=== PATIENT | female | born 1995 | race Two or more races ===

== ENCOUNTER 2019-07-27 21:42 | Emergency (ER) | payer OTHER ==
[~2019-07-27] VITALS: Ht 149.9 cm; Wt 59.9 kg
--- NOTE | 2019-07-27 21:49 | PHYS DOC ---
Adult General Chief Complaint Chief Complaint: ".. I ve got a vaginal discharge and discomfort... some itching.. I ve been having some unprotected sex the last couple weeks.. 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 Patient has history recent unprotected sexual intercourse. Has had 3 lifetime sexual partners. No history of STDs. No history of pregnancies. There was a use a condom but also some non-protected vaginal sex. No instrumentation.. No rectal sex. No history immunosuppression. No history of recent travel. Patient rosalva blairy healthy. Up-to-date with vaccinations. Review of Systems Review of Systems Constitutional: Denies fever or chills [] Eyes: Denies change in visual acuity, redness, or eye pain [] HENT: Denies nasal congestion or sore throat [] Respiratory: Denies cough or shortness of breath [] Cardiovascular: No additional information not addressed in HPI [] GI: Denies nausea, vomiting, bloody stools or diarrhea [. Patient has]complaints of lower pelvic discomfort : Denies dysuria or hematuria [. Patient has]complaints of vaginal discharge and discomfort. Musculoskeletal: Denies back pain or joint pain [] Integument: Denies rash or skin lesions [] Neurologic: Denies headache, focal weakness or sensory changes [] Endocrine: Denies polyuria or polydipsia [] All other systems were reviewed and found to be within normal limits, except as documented in this note. Family History Family History Noncontributory Current Medications Current Medications See nursing for home meds Allergies Allergies No known drug allergies Physical Exam Physical Exam Constitutional: Well developed, well nourished, moderate acute distress, non- toxic appearance. [] HENT: Normocephalic, atraumatic, bilateral external ears normal, oropharynx moist, no oral exudates, nose normal. [] Eyes: PERRLA, EOMI, conjunctiva normal, no discharge. [] Neck: Normal range of motion, no tenderness, supple, no stridor. [] Cardiovascular:Heart rate regular rhythm, no murmur [] Lungs & Thorax: Bilateral breath sounds clear to auscultation [] Abdomen: Bowel sounds normal, soft, no tenderness, no masses, no pulsatile masses. [] Pelvic exam- labia are inflamed and red. Has cervical motion tenderness. Does have vaginal inflammation and discharge. No adnexal tenderness. Rectal nontender. No Rebound pain. Skin: Warm, dry, no erythema, no rash. [] Back: No tenderness, no CVA tenderness. [] Extremities: No tenderness, no cyanosis, no clubbing, ROM intact, no edema. [] No psoas sign. Neurologic: Alert and oriented X 3, normal motor function, normal sensory function, no focal deficits noted. [] Psychologic: Affect anxious, judgement normal, mood normal. [] EKG EKG [] Radiology/Procedures Radiology/Procedures [] Course & Med Decision Making Course & Med Decision Making Pertinent Labs and Imaging studies reviewed. (See chart for details) Patient to practice safe sex. Take doxycycline 100 mg twice a day. Follow-up pending cultures. Partner needs to be treated . Follow-up with primary care. Return if any concerns. After completing the doxycycline take Diflucan 100 mg daily for 3 days. Impression - 1. Cervicitis [] Dragon Disclaimer Dragon Disclaimer This electronic medical record was generated, in whole or in part, using a voice recognition dictation system. Departure Departure: Disposition: HOME/RESIDENCE PRIOR TO ADM Condition: STABLE Referrals: PCP,UNKNOWN (PCP) Scripts Fluconazole (DIFLUCAN) 150 Mg Tablet 150 MG PO DAILY for post antibiotic treatment for 3 Days, #3 TAB Prov: LOLITA KATZ MD 07/27/19 Doxycycline Hyclate (Doryx) 50 Mg Tablet.dr 100 MG PO twice a day for cervicitis, #30 TAB Prov: LOLITA KATZ MD 07/27/19 Mohan Disclaimer This chart was dictated in whole or in part using Voice Recognition software in a busy, high-work load, and often noisy Emergency Department environment. It may contain unintended and wholly unrecognized errors or omissions. LOLITA KATZ MD Jul 27, 2019 21:49
[2019-07-27 21:55] VITALS: BP 134/84
[2019-07-27] MEDS ORDERED: ONDANSETRON ODT 4 MG TAB.RAPDIS PO ONE (22:15)
[2019-07-27] MEDS ORDERED: AZITHROMYCIN 250 MG TABLET. PO ONE (22:15)
[2019-07-27] MEDS ORDERED: metroNIDAZOLE 500 MG TABLET PO ONE (22:15)
[2019-07-27] MEDS ORDERED: cefTRIAXone IM 1 GM VIAL IM ONE (22:15)
[2019-07-27] MEDS ORDERED: DOXY50TA7 PO (22:21)
[2019-07-27] MEDS ORDERED: FLUC150T PO (22:21)
[2019-07-27] MEDS ORDERED: cefTRIAXone SODIUM 1 GM VIAL ONE (22:22)
[2019-07-27] MEDS ORDERED: IV RINGERS SOLUTION,LACTATED 1,000 ML IV SCH (22:30)
[2019-07-27] MEDS ORDERED: ACETAMINOPHEN 500 MG TABLET PO ONE (22:30)
[2019-07-27] MEDS ORDERED: ONDANSETRON PF 4 MG/2 ML VIAL. IVP ONE (22:30)
[2019-07-27 22:47] LABS: BASO # 0.1 x10^3/uL (0.0-0.2); BASO % 1 % (0-3); EOS # 0.3 x10^3/uL (0.0-0.7); EOS % 3 % (0-3); HEMATOCRIT 39.7 % (36.0-47.0); HEMOGLOBIN 13.2 g/dL (12.0-15.5); LYMPH # 2.2 x10^3/uL (1.0-4.8); LYMPH % 21 % (24-48); MEAN CORPUSCULAR HEMOGLOBIN 30 pg (25-35); MEAN CORPUSCULAR HGB CONC 33 g/dL (31-37); MEAN CORPUSCULAR VOLUME 89 fL (79-100); MONO % 10 % (0-9); NEUT # 6.9 x10^3uL (1.8-7.7); NEUT % 65 % (31-73); PLATELET COUNT 317 x10^3/uL (140-400); RED BLOOD COUNT 4.44 x10^6/uL (3.50-5.40); RED CELL DISTRIBUTION WIDTH 13.5 % (11.5-14.5); WHITE BLOOD COUNT 10.5 x10^3/uL (4.0-11.0)
[2019-07-27 22:53] LABS: CALCIUM 8.7 mg/dL (8.5-10.1); CREATININE 0.7 mg/dL (0.6-1.0); GFR 105.6; POTASSIUM 3.6 mmol/L (3.5-5.1)
[2019-07-27 22:59] LABS: ALBUMIN 3.8 g/dL (3.4-5.0); DIRECT BILIRUBIN 0.1 mg/dL (0.0-0.2); TOTAL BILIRUBIN 0.4 mg/dL (0.2-1.0); TOTAL PROTEIN 7.5 g/dL (6.4-8.2)
[2019-07-27 23:00] LABS: BARBITURATES NEG (NEG); BENZODIAZEPINES NEG (NEG); CANNABINOIDS NEG (NEG); COCAINE NEG (NEG); METHADONE NEG (NEG); OPIATES NEG (NEG); PHENCYCLIDINE NEG (NEG)
[2019-07-27 23:01] LABS: AMPHETAMINE/METHAMPHETAMINE NEG (NEG)
[2019-07-29 21:06] LABS: CHLAMYDIA PROBE Negative (Negative)
== END 2019-07-27 23:25 | disposition home or self-care (01) ==
LOC: ER 21:42
DX: N72 Inflammatory disease of cervix uteri (principal)
CPT/HCPCS: 36415; 80048; 80076; 80307; 81025; 85025; 86592; 86703; 86705; 86709; 86803; 87340; 87480; 87491; 87510; 87591; 87660; 96372; 99284; J0456; J0696; Q0111; Q0162

== ENCOUNTER 2019-12-12 10:51 | Emergency (ER) | payer OTHER ==
[~2019-12-12] VITALS: Ht 149.9 cm; Wt 67.0 kg
[~2019-12-12 10:51] MED LIST: DOXY50TA7 PO; FLUC150T PO
[2019-12-12 11:06] VITALS: BP 128/92
--- NOTE | 2019-12-12 11:13 | PHYS DOC ---
Past History Past Medical History: No Pertinent History Past Surgical History: No Surgical History Smoking: Non-smoker Alcohol Use: Occasionally Drug Use: None General Adult EDM: Chief Complaint: SORE THROAT HPI: HPI: 24-year-old female presents with 3-week history of sore throat. Patient reports was seen at [facility] and put on a 10-day course of penicillin with some improvement of her symptoms. Reports however sore throat has continued. Patient was again seen at the [facility] and started on Zyrtec. Reports that Zyrtec has not helped at all. Denies any fever or chills. Denies known sick contacts. Patient is unsure if she might be . Patient does report she noted some removal of tonsil stones. Reports has had some limited ability to swallow food due to discomfort. Review of Systems: Review of Systems: Constitutional: Denies fever or chills Eyes: Denies redness or eye pain HENT: Denies nasal congestion; reports sore throat Respiratory: Denies cough or shortness of breath Cardiovascular: Denies chest pain or palpitations GI: Denies abdominal pain, nausea, or vomiting : Denies dysuria or hematuria Musculoskeletal: Denies back pain or joint pain Integument: Denies rash or skin lesions Neurologic: Denies headache, focal weakness or sensory changes Complete systems were reviewed and found to be within normal limits, except as documented in this note. Current Medications: Current Meds: Current Medications Medications (Trade) Dose Ordered Sig/Selina Start Time Stop Time Status Last Admin Dose Admin Dexamethasone (Decadron) 10 mg 1X ONCE 12/12/19 11:00 12/12/19 11:01 UNV Allergies: Allergies: Allergies Coded Allergies Type Severity Reaction Last Updated Verified No Known Drug Allergies 07/27/19 No Physical Exam: PE: Constitutional: Well developed, well nourished, no acute distress, non-toxic appearance HENT: Normocephalic, atraumatic, oropharynx moist, voice muffled, tonsillary swelling noted, exudate vs tonsillar stones noted Eyes: Conjunctiva normal, no discharge Neck: Normal range of motion, no tenderness, supple Lungs & Thorax: NO respiratory distress noted, equal chest rise and fall Skin: Warm, dry, no erythema, no rash Extremities: No tenderness, ROM intact Neurologic: Alert and oriented X 3, no focal deficits noted Psychologic: Affect normal, judgment normal EKG: EKG: [] Radiology/Procedures: Radiology/Procedures: [] Course & Med Decision Making: Course & Med Decision Making Pertinent Lab studies reviewed. (See chart for details) Patient presents with continued sore throat despite being on 10-day course of penicillin as well as addition of Zyrtec. Tonsillar enlargement with exudate versus tonsillar stones appreciated. Rapid strep positive. Monospot negative. Patient also reports concerned she might be . Urine negative. Symptomatic treatment provided with oral steroid. IM Bicillin given. Patient stable for discharge with outpatient follow-up with PCP. Discussed findings and plan with patient, who acknowledges understanding and agreement. Dragon Disclaimer: Dragon Disclaimer: This electronic medical record was generated, in whole or in part, using a voice recognition dictation system. Departure Departure: Impression: Primary Impression: Pharyngitis Qualified Codes: J02.0 - Streptococcal pharyngitis Disposition: HOME/RESIDENCE PRIOR TO ADM Condition: STABLE Referrals: PCP,UNKNOWN (PCP) Patient Instructions: Strep Throat, [id number] Additional Instructions: You have been given an one time shot of a very powerful antibiotic to treat your strep throat. No further antibiotic is required. You may benefit from follow-up with an ENT. Please call and make appointment for further evaluation and treatment. Dr. Theresa Robbins [facility] [address], [address] [place] [address] Scripts Prednisone (PREDNISONE) 20 Mg Tablet 2 TAB PO DAILY for Pharyngitis, #8 TAB Start this prescription tomorrow, Monday12/13/19 Prov: ANA LAURA WHATLEY DO 12/12/19 ANA LAURA WHATLEY DO December 12, 2019 11:13
[2019-12-12] MEDS ORDERED: DEXAMETHASONE 4 MG TABLET PO ONE (11:15)
[2019-12-12] MEDS ORDERED: PRED20TA PO (11:25)
[2019-12-12] MEDS ORDERED: PENICILLIN G BENZATHINE LA 1,200,000 UNIT/2 ML DISP.SYRIN. IM ONE (11:30)
[2019-12-12 11:32] LABS: MONONUCLEOSIS PATIENT NEGATIVE (NEGATIVE)
== END 2019-12-12 11:57 | disposition home or self-care (01) ==
LOC: ER 10:51
DX: J02.0 Streptococcal pharyngitis (principal); B95.0 Streptococcus, group A, as the cause of diseases classified elsewhere
CPT/HCPCS: 81025; 86308; 87880; 96372; 99283; J0561; J8540

== ENCOUNTER 2020-08-19 06:12 | Emergency (ER) | payer OTHER ==
[~2020-08-19] VITALS: Ht 149.9 cm; Wt 67.0 kg
[~2020-08-19 06:12] MED LIST changes: +PRED20TA PO
[2020-08-19 06:20] VITALS: BP 114/78
[2020-08-19] MEDS ORDERED: DEXAMETHASONE SOD PHOS 10 MG/ML VIAL. IV ONE (06:45)
[2020-08-19] MEDS ORDERED: IV NORMAL SALINE 1,000ML 1,000 ML IV ONE (06:45)
[2020-08-19] MEDS ORDERED: OXYC5TAB4 PO (07:14)
--- NOTE | 2020-08-19 07:15 | PHYS DOC ---
Past History Past Medical History: No Pertinent History Past Surgical History: No Surgical History Smoking: Non-smoker Alcohol Use: Occasionally Drug Use: None Adult General Chief Complaint Chief Complaint: POST-OP PROBLEM HPI HPI Patient is a 24-year-old female who presents to the emergency room 6 days postop from a tonsillectomy. Patient states that she has been having a hard time controlling her pain since her surgery. She states that the oxycodone hurt her throat so she quit taking it. Her surgeon prescribed her steroids which she has took the last dose of today but states that they gave her diarrhea. She has been taking Tylenol at home without relief. She states she feels like she cannot eat or drink anything. Patient continues to state that she cannot keep anything down but when asked what this means she states that she typically has diarrhea right after taking any medication or trying to eat or drink. She is not having any kind of vomiting. Review of Systems Review of Systems Complete ROS is negative unless otherwise documented in HPI Current Medications Current Medications Current Medications Medications (Trade) Dose Ordered Sig/Selina Start Time Stop Time Status Last Admin Dose Admin Dexamethasone Sodium Phosphate (Decadron) 10 mg 1X ONCE 08/19/20 06:45 08/19/20 06:46 UNV Sodium Chloride 1,000 ml @ 1,000 mls/hr 1X ONCE 08/19/20 06:45 08/19/20 07:44 UNV Allergies Allergies Allergies Coded Allergies Type Severity Reaction Last Updated Verified No Known Drug Allergies 07/27/19 No Physical Exam Physical Exam General: Awake, alert, NAD. Well Nourished, well hydrated. Cooperative HEENT: Atraumatic, EOMI, PERRL, airway patent, moist oral mucosa postop scabs in place and bilateral tonsillar crypts Neck: Supple, trachea midline Respiratory: CTA bilaterally, normal effort, no wheezing/crackles CV: RRR, no murmur, cap refill <2 GI: Soft, nondistended, nontender, no masses MSK: No obvious deformities Skin: Warm, dry, intact Neuro: A&O x3, speech NL, sensory and motor grossly intact, no focal deficits Psych: Normal affect, normal mood, not suicidal or homicidal EKG EKG [] Radiology/Procedures Radiology/Procedures [] Heart Score Risk Factors: Risk Factors: DM, Current or recent (<one month) smoker, HTN, HLP, family history of CAD, obesity. Risk Scores: Risk Factors: DM, Current or recent (<one month) smoker, HTN, HLP, family history of CAD, obesity. Course & Med Decision Making Course & Med Decision Making Pertinent Labs and Imaging studies reviewed. (See chart for details) Patient is 24-year-old female who presents to the emergency room complaining of postop pain and concerned that maybe she is dehydrated. Patient overall is well-appearing. She has moist oral mucosa. She will be given fluids and steroids IV here in the emergency room. We will prescribe her tablets of oxycodone which she should be able to swallow without difficulty which will not make her postop wounds burn. Discussed with patient that she should follow-up with her surgeon as needed for any further pain issues. Patient's test results and vitals while in the ED were fully reviewed and discussed with the patient. Patient is stable and at this time does not need admission to the hospital. We have discussed strict return precautions and the importance of following up with their Primary Care Physician. Patient stated understanding and was given an opportunity to ask any questions. Patient is in agreement with plan. Dragon Disclaimer Dragon Disclaimer This electronic medical record was generated, in whole or in part, using a voice recognition dictation system. Departure Departure: Impression: Primary Impression: Post-op pain Additional Impression: Dehydration Disposition: 01 DC HOME SELF CARE/HOMELESS Condition: IMPROVED Referrals: PCP,UNKNOWN (PCP) Patient Instructions: Diet - Following Tonsillectomy, Adult, Pain Relief Preoperatively and Postoperatively, Tonsillectomy, Adult, Care After Scripts Oxycodone Hcl (OXYCODONE HCL IMMED.RELEASE ) 5 Mg Tablet 5 MG PO PRN Q6HRS PRN for PAIN for 3 Days, #12 TAB Prov: ABE ROGERS MD 08/19/20 Problem Qualifiers ABE ROGERS MD Aug 19, 2020 07:15
[2020-08-19 07:25] LABS: BACTERIA,URINE MOD /HPF (0-FEW); BILIRUBIN,URINE NEG (NEG); CLARITY,URINE CLOUDY; COLOR,URINE YELLOW; GLUCOSE,URINE NEG (NEG); NITRITE,URINE NEG (NEG); RBC,URINE OCC /HPF (0-2); SQUAMOUS EPITHELIAL CELL,UR MOD /LPF
[2020-08-19] MEDS ORDERED: diphenhydrAMINE 50 MG/ML VIAL IVP ONE (07:45)
== END 2020-08-19 08:24 | disposition home or self-care (01) ==
LOC: ER 06:12
DX: G89.18 Other acute postprocedural pain (principal); E86.0 Dehydration; R19.7 Diarrhea, unspecified
CPT/HCPCS: 81001; 87086; 96361; 96374; 96375; 99284; J1100; J1200; J7030; 87147

== ENCOUNTER 2020-10-28 13:30 | Emergency (ER) | payer OTHER ==
[~2020-10-28] VITALS: Ht 149.9 cm; Wt 66.4 kg
[~2020-10-28 13:30] MED LIST changes: +OXYC5TAB4 PO
--- NOTE | 2020-10-28 14:26 | PHYS DOC ---
Past History Past Medical History: No Pertinent History Past Surgical History: Tonsillectomy Smoking: Non-smoker Alcohol Use: Occasionally Drug Use: None General Adult EDM: Chief Complaint: ABDOMINAL PAIN HPI: HPI: Patient is a 24-year-old female presents with right upper quadrant pain and right lower abdominal pain since this morning. Patient is also reporting left flank pain. Reports dizziness when she goes from laying to a standing position, and also has had some nausea and body aches. Denies fevers. Denies vomiting or diarrhea. Denies dysuria or frequency. Last menstrual period 10/03. Patient denies any health history. Review of Systems: Review of Systems: Constitutional: Denies fever or chills Eyes: Denies change in visual acuity HENT: Denies nasal congestion or sore throat Respiratory: Denies cough or shortness of breath Cardiovascular: Denies chest pain or edema GI: Reports right upper quadrant and right lower quadrant abdominal pain, nausea. Denies vomiting, bloody stools or diarrhea : Denies dysuria Musculoskeletal: Denies back pain or joint pain Integument: Denies rash Neurologic: Denies headache, focal weakness or sensory changes Endocrine: Denies polyuria or polydipsia Lymphatic: Denies swollen glands Psychiatric: Denies depression or anxiety Allergies: Allergies: Allergies Coded Allergies Type Severity Reaction Last Updated Verified No Known Drug Allergies 10/28/20 No Physical Exam: PE: Constitutional: Well developed, well nourished, no acute distress, non-toxic appearance. [] HENT: Normocephalic, atraumatic, bilateral external ears normal, oropharynx moist, no oral exudates, nose normal. [] Eyes: PERRLA, EOMI, conjunctiva normal, no discharge. [] Neck: Normal range of motion, no tenderness, supple, no stridor. [] Cardiovascular:Heart rate irregular rhythm, no murmur [] Lungs & Thorax: Bilateral breath sounds clear to auscultation [] Abdomen: Bowel sounds normal, soft, no tenderness, no masses, no pulsatile masses. [] Skin: Warm, dry, no erythema, no rash. [] Back: No tenderness, left CVA tenderness Extremities: No tenderness, no cyanosis, no clubbing, ROM intact, no edema. [] Neurologic: Alert and oriented X 3, normal motor function, normal sensory function, no focal deficits noted. [] Psychologic: Affect normal, judgement normal, mood normal. [] Current Patient Data: Labs: Laboratory Tests Test 10/28/20 14:01 POC Urine HCG, Qualitative hcg negative (Negative) Vital Signs: Vital Signs Date Time Temp Pulse Resp B/P (MAP) Pulse Ox O2 Delivery O2 Flow Rate FiO2 10/28/20 13:43 98.8 66 16 113/64 (80) 100 EKG: EKG: [] Sinus rhythm, heart rate 62 bpm. Radiology/Procedures: Radiology/Procedures: [] Exam Date: 10/28/2020 2:35 PM XR CHEST 1V Indication: Reason: DIZZINESS / Spl. Instructions: / History: FINDINGS/ IMPRESSION: The cardiac silhouette and pulmonary vasculature are within normal limits. There is no focal consolidation, pleural effusion or pneumothorax. The visualized osseous structures are intact. Electronically signed by: Richard Nielsen MD (10/28/2020 3:04 PM) [id number] Exam Date: 10/28/2020 2:[address] ABDOMEN+PELVIS WO Indication: Reason: abd pain, RLQ, LEFT FLANK / Spl. Instructions: / History: TECHNIQUE: CT examination of the abdomen and pelvis was performed without oral or intravenous contrast. One or more of the following dose reduction techniques were utilized: *Automated exposure control (AEC) *Adjustment of mA and/or kV according to patient size *Use of iterative reconstruction technique *CT scan done according to ALARA, or ALARA/IMAGE GENTLY FINDINGS: The visualized lung bases are clear. The liver, gallbladder, spleen, pancreas, and adrenal glands are normal. The kidneys are normal bilaterally. No hydronephrosis or hydroureter is seen. No urinary tract calculi are seen. Urinary bladder is normal in appearance. There is no bowel obstruction or inflammation. The appendix is normal. No significant atherosclerotic calcifications are seen. No lymphadenopathy is seen. Trace free fluid in the pelvis is nonspecific, likely physiologic Osseous structures are intact. IMPRESSION: Normal appearance of the kidneys and bladder. No hydronephrosis or hydroureter. No urinary tract calculi. Electronically signed by: Richard Nielsen MD (10/28/2020 3:03 PM) [id number] Heart Score: C/O Chest Pain: No Risk Factors: Risk Factors: DM, Current or recent (<one month) smoker, HTN, HLP, family history of CAD, obesity. Risk Scores: Score 0 - 3: 2.5% MACE over next 6 weeks - Discharge Home Score 4 - 6: 20.3% MACE over next 6 weeks - Admit for Clinical Observation Score 7 - 10: 72.7% MACE over next 6 weeks - Early Invasive Strategies Course & Med Decision Making: Course & Med Decision Making Pertinent Labs and Imaging studies reviewed. (See chart for details) [] Right upper quadrant, right lower quadrant, left flank pain since this morning. Patient is also reporting dizziness with position changes. EKG ordered, CBC, CMP. Patient's last menstrual period was 10/03. Patient states that she is not sure if she is or not. UA and urine ordered. Patient denies dysuria or frequency. Patient is also reporting some nausea but denies vomiting or diarrhea. Patient denies taking anything for nausea. CT of abdomen and pelvis ordered to rule out acute abnormalities. WBC 9.6. UA is negative for infection. Chest x-ray is negative. CT of abdomen pelvis is negative for any acute abnormalities. All labs unremarkable. EKG shows normal sinus rhythm. Heart rate 62 bpm. Discharging patient to home with instructions to return to the emergency room with worsening pain or concerns. Patient to take Tylenol or ibuprofen for discomfort at home. Patient is hemodynamically stable and able to ambulate on her own of the emergency room. [employer] Disclaimer: [employer] Disclaimer: This electronic medical record was generated, in whole or in part, using a voice recognition dictation system. Departure Departure: Impression: Primary Impression: Abdominal pain Qualified Codes: R10.31 - Right lower quadrant pain Disposition: 01 DC HOME SELF CARE/HOMELESS Condition: STABLE Referrals: PCP,UNKNOWN (PCP) Patient Instructions: Abdominal Pain Additional Instructions: You were seen in the emergency room today for abdominal pain. All of your labs were unremarkable. Your CT of your abdomen and pelvis was negative for any acute abnormalities. Your urine was negative for infection. You can take ibupr ofen and Tylenol at home for discomfort. Please return to the emergency room with worsening symptoms or concerns. EMERGENCY DEPARTMENT GENERAL DISCHARGE INSTRUCTIONS Thank you for coming to [facility] (ED) today and trusting us with you care. We trust that you had a positivie experience in our Emergency Department. If you wish to speak to the department management, you may call the director at [phone]. YOUR FOLLOW UP INSTRUCTIONS ARE FOLLOWS: 1. Do you have a private Doctor? If you do not have a private doctor, please ask for a resource list of physicians or clinics that may be able to assist you with follow up care. 2. The Emergency Physician has interpreted your x-rays. The X-Ray specialist will also review them. If there is a change in the findings, you will be notified in 48 hours when at all possible. 3. A lab test or culture has been done, your results will be reviewed and you will be notified if you need a change in treatment. ADDITIONAL INSTRUCTIONS AND INFORMATION: 1. Your care today has been supervised by a physician who is specially trained in emergency care. Many problems require more than one evaluation for a complete diagnosis and treatment. We recommend that you schedule your follow up appointment as recommended to ensure complete treatment of you illness or injury. If you are unable to obtain follow up care and continue to have a problem, or if your condition worsens, we recommend that you return to the ED. 2. We are not able to safely determine your condition over the phone nor are we able to give sound medical advice over the phone. For these safety reasons, if you call for medical advice we will ask you to come to the ED for further evaluation. 3. If you have any questions regarding these discharge instructions please call the ED at [phone]. SAFETY INFORMATION: In the interest of safety, wellness, and injury prevention; we encourage you to wear your sealbelt, if you smoke; quite smoking, and we encourage family to use a protective helmet for bicycling and other sporting events that present an increased risk for head injury. IF YOUR SYMPTOMS WORSEN OR NEW SYMPTOMS DEVELOP, OR YOU HAVE CONCERNS ABOUT YOUR CONDITION; OR IF YOUR CONDITION WORSENS WHILE YOU ARE WAITING FOR YOUR FOLLOW UP APPOINTMENT; EITHER CONTACT YOUR PRIMARY CARE DOCTOR, THE PHYSICIAN WHOSE NAME AND NUMBER YOU WERE GIVEN, OR RETURN TO THE ED IMMEDIATELY. TIMOTEO CAUSEY APRN Oct 28, 2020 14:26
[2020-10-28] MEDS ORDERED: KETOROLAC 15 MG/ML VIAL. IVP ONE (14:45)
[2020-10-28 14:46] LABS: BASO # 0.1 x10^3/uL (0.0-0.2); BASO % 1 % (0-3); EOS # 0.2 x10^3/uL (0.0-0.7); EOS % 2 % (0-3); HEMATOCRIT 40.5 % (36.0-47.0); HEMOGLOBIN 13.7 g/dL (12.0-15.5); LYMPH # 2.3 x10^3/uL (1.0-4.8); LYMPH % 24 % (24-48); MEAN CORPUSCULAR HEMOGLOBIN 30 pg (25-35); MEAN CORPUSCULAR HGB CONC 34 g/dL (31-37); MEAN CORPUSCULAR VOLUME 89 fL (79-100); MONO # 0.7 x10^3/uL (0.0-1.1); MONO % 7 % (0-9); NEUT # 6.4 x10^3uL (1.8-7.7); NEUT % 66 % (31-73); PLATELET COUNT 301 x10^3/uL (140-400); RED BLOOD COUNT 4.56 x10^6/uL (3.50-5.40); RED CELL DISTRIBUTION WIDTH 13.7 % (11.5-14.5); WHITE BLOOD COUNT 9.6 x10^3/uL (4.0-11.0)
[2020-10-28 14:52] LABS: BACTERIA,URINE FEW /HPF (0-FEW); BILIRUBIN,URINE NEG (NEG); CLARITY,URINE CLEAR; COLOR,URINE STRAW; GLUCOSE,URINE NEG (NEG); NITRITE,URINE NEG (NEG); RBC,URINE 0 /HPF (0-2); SQUAMOUS EPITHELIAL CELL,UR FEW /LPF; UROBILINOGEN,URINE 0.2 mg/dL (0.2 mg/dL); WBC,URINE 0 /HPF (0-4)
--- NOTE | 2020-10-28 15:05 | RAD ---
Exam Date: 10/28/2020 2:[address] ABDOMEN+PELVIS WO Indication: Reason: abd pain, RLQ, LEFT FLANK / Spl. Instructions: / History: TECHNIQUE: CT examination of the abdomen and pelvis was performed without oral or intravenous contra st. One or more of the following dose reduction techniques were utilized: *Automated exposure control (AEC) *Adjustment of mA and/or kV according to patient size *Use of iterative reconstruction technique *CT scan done according to ALARA, or ALARA/IMAGE GENTLY FINDINGS: The visualized lung bases are clear. The liver, gallbladder, spleen, pancreas, and adrenal glands are normal. The kidneys are normal bilaterally. No hydronephrosis or hydroureter is seen. No urinary tract calc vj are seen. Urinary bladder is normal in appearance. There is no bowel obstruction or inflammation. The appendix is normal. No significant atherosclerotic calcifications are seen. No lymphadenopathy is seen. Trace free fluid in the pelvis is nonspecific, likely physiologic Osseous structures are intact. IMPRESSION: Normal appearance of the kidneys and bladder. No hydronephrosis or hydroureter. No urinary tract ca lculi. Electronically signed by: Richard Nielsen MD (10/28/2020 3:03 PM) [id number]
--- NOTE | 2020-10-28 15:06 | RAD ---
Exam Date: 10/28/2020 2:35 PM XR CHEST 1V Indication: Reason: DIZZINESS / Spl. Instructions: / History: FINDINGS/ IMPRESSION: The cardiac silhouette and pulmonary vasculature are within normal limits. There is no focal consolidation, pleural effusion or pneumothorax. The visualized osseous structures are intact. Electronically signed by: Richard Nielsen MD (10/28/2020 3:04 PM) [id number]
[2020-10-28 15:21] LABS: POTASSIUM ISTAT 3.8 mmol/L (3.5-5.0)
[2020-10-28 15:22] LABS: HEMOGLOBIN ISTAT 14.3 gm/dL
--- NOTE | 2020-10-28 15:28 | EKG ---
[address] [address] Test Date: 2020-10-28 Test Time: 14:21:24 Pat Name: MYKEL MEDINA Department: Room: Gender: F Back Padder: : 1995 Requested By: TIMOTEO CAUSEY Order Number: [id number] Reading MD: Measurements Intervals [place] Rate: 62 P: 0 AR: 142 QRS: 51 QRSD: 72 T: 21 QT: 420 QTc: 429 Interpretive Statements SINUS RHYTHM NORMAL ECG RI6.02 No previous ECG available for comparison
[2020-10-28] MEDS ORDERED: IV NORMAL SALINE 1,000ML 1,000 ML IV ONE (15:45)
[2020-10-28 15:55] VITALS: BP 113/72
[2020-10-28 16:37] LABS: ALBUMIN 3.8 g/dL (3.4-5.0); TOTAL BILIRUBIN 0.5 mg/dL (0.2-1.0); TOTAL PROTEIN 7.7 g/dL (6.4-8.2)
[2020-10-28 22:11] LABS: CALCIUM 9.1 mg/dL (8.5-10.1); CREATININE 0.7 mg/dL (0.6-1.0); GFR 104.6
== END 2020-10-28 16:00 | disposition home or self-care (01) ==
LOC: ER 13:30
DX: R10.31 Right lower quadrant pain (principal); R10.11 Right upper quadrant pain; R42 Dizziness and giddiness; M79.10 Myalgia, unspecified site
CPT/HCPCS: 36415; 71045; 74176; 80047; 80053; 81001; 81025; 83690; 85025; 93005; 96374; 99285; J1885

== ENCOUNTER 2020-10-30 11:15 | Emergency (ER) | payer OTHER ==
[~2020-10-30] VITALS: Ht 149.9 cm; Wt 66.2 kg
[2020-10-30] MEDS: PROCHLORPERAZINE 10 MG/2 ML VIAL. IV ONE (11:58)
[2020-10-30] MEDS: diphenhydrAMINE 50 MG/ML VIAL IM ONE (11:58)
[2020-10-30] MEDS: IV NORMAL SALINE 1,000ML 1,000 ML IV ONE (11:58)
--- NOTE | 2020-10-30 12:15 | PHYS DOC ---
Past History Past Medical History: No Pertinent History Past Surgical History: Tonsillectomy Smoking: Non-smoker Alcohol Use: Occasionally Drug Use: None Adult General Chief Complaint Chief Complaint: MULTIPLE COMPLAINTS HPI HPI Patient is a 24-year-old female who presents with right-sided headache, dizziness, weakness, and nausea. She reports symptoms onset initially began on Monday and she presented to urgent care who referred her to our emergency room due to concerns of appendicitis. She reports on that visit she received a EKG, got lab work, got a CT scan of her abdomen, and a chest x-ray and was told that everything at that time was negative and to go home and use ibuprofen for supportive care. On today's visit she is reports that her vomiting and diarrhea resolved however she continues to have lingering nausea, dizziness, weakness, and right sided posterior headache that does not radiate. She reports associated photo and phonophobia with the headache however denies previous migraine history. Denies syncope, chest pain, shortness of breath, altered men tation, hematemesis, and hematochezia. Does report increased urination since symptoms began. Review of Systems Review of Systems Fourteen body systems of review of systems have been reviewed. See HPI for pertinent positives and negative responses, other schwarz all other systems are negative, non-pertinent or non-contributory Current Medications Current Medications Current Medications Medications (Trade) Dose Ordered Sig/Selina Start Time Stop Time Status Last Admin Dose Admin Diphenhydramine HCl (Benadryl) 25 mg 1X ONCE 10/30/20 11:45 10/30/20 11:46 UNV Prochlorperazine Edisylate (Compazine) 10 mg 1X ONCE 10/30/20 11:45 10/30/20 11:46 UNV Sodium Chloride 1,000 ml @ 1,000 mls/hr 1X ONCE 10/30/20 11:45 10/30/20 12:44 UNV Allergies Allergies Allergies Coded Allergies Type Severity Reaction Last Updated Verified No Known Drug Allergies 10/28/20 No Physical Exam Physical Exam General: Appears well, non toxic, and comfortable Skin: Warm, dry. Normal for ethnicity. HEENT: Atraumatic. PERRLA. Moist mucous membranes. Neck: Trachea midline. Normal ROM. Respiratory: Normal WOB. CTAB w/o w/r/r. No tachypnea. Cardiovascular: Regular rate and rhythm. Normal peripheral perfusion. No edema. Abdomen: Soft. Non tender. No distension. Back: Normal ROM. Musculoskeletal: No swelling or deformity. Neuro: Alert and oriented x 4. MAEE. GCS 15. Normal FNF. Negative pronator drift. Normal heel to [place]. Normal Mihir. CN II-XII intact. Normal strength and sensation. Normal speech. No meningismus. Psych: Normal affect and mood. Current Patient Data Vital Signs Vital Signs Date Time Temp Pulse Resp B/P (MAP) Pulse Ox O2 Delivery O2 Flow Rate FiO2 10/30/20 11:21 98.2 87 15 114/63 (80) 99 Room Air Lab Results Laboratory Tests Test 10/30/20 11:39 10/30/20 11:53 10/30/20 11:59 Urine Collection Type Unknown Urine Color Straw Urine Clarity Clear Urine pH 7.5 Urine Specific [place] 1.025 Urine Protein Neg Urine Glucose (UA) Neg mg/dL Urine Ketones (Stick) Neg mg/dL Urine Blood Neg Urine Nitrite Neg Urine Bilirubin Neg Urine Urobilinogen Dipstick 0.2 mg/dL Urine Leukocyte Esterase Neg Urine RBC 0 /HPF Urine WBC Rare /HPF Urine Squamous Epithelial Cells Few /LPF Urine Bacteria Few /HPF Bedside Urine HCG, Qualitative hcg negative White Blood Count 7.5 x10^3/uL Red Blood Count 4.45 x10^6/uL Hemoglobin 13.3 g/dL Hematocrit 39.3 % Mean Corpuscular Volume 88 fL Mean Corpuscular Hemoglobin 30 pg Mean Corpuscular Hemoglobin Concent 34 g/dL Red Cell Distribution Width 14.3 % Platelet Count 290 x10^3/uL Neutrophils (%) (Auto) 63 % Lymphocytes (%) (Auto) 26 % Monocytes (%) (Auto) 8 % Eosinophils (%) (Auto) 3 % Basophils (%) (Auto) 1 % Neutrophils # (Auto) 4.7 x10^3uL Lymphocytes # (Auto) 2.0 x10^3/uL Monocytes # (Auto) 0.6 x10^3/uL Eosinophils # (Auto) 0.2 x10^3/uL Basophils # (Auto) 0.1 x10^3/uL Sodium Level 138 mmol/L Potassium Level 3.9 mmol/L Chloride Level 104 mmol/L Carbon Dioxide Level 26 mmol/L Anion Gap 8 Blood Urea Nitrogen 12 mg/dL Creatinine 0.8 mg/dL Estimated GFR (Cockcroft-Gault) 89.7 BUN/Creatinine Ratio 15 Glucose Level 88 mg/dL Calcium Level 9.1 mg/dL Total Bilirubin 0.6 mg/dL Aspartate Amino Transf (AST/SGOT) 29 U/L Alanine Aminotransferase (ALT/SGPT) 72 U/L Alkaline Phosphatase 76 U/L Total Protein 7.4 g/dL Albumin 3.8 g/dL Albumin/Globulin Ratio 1.1 Current Medications Medications (Trade) Dose Ordered Sig/Selina Route PRN Reason Start Time Stop Time Status Last Admin Dose Admin Prochlorperazine Edisylate (Compazine) 10 mg 1X ONCE IV 10/30/20 11:45 10/30/20 11:47 DC 10/30/20 11:58 Diphenhydramine HCl (Benadryl) 25 mg 1X ONCE IM 10/30/20 11:45 10/30/20 11:47 DC 10/30/20 11:58 Sodium Chloride 1,000 ml @ 1,000 mls/hr 1X ONCE IV 10/30/20 11:45 10/30/20 12:44 DC 10/30/20 11:58 EKG EKG [] Radiology/Procedures Radiology/Procedures [] Heart Score C/O Chest Pain: No HEART Score for Chest Pain: HEART Score for Chest Pain Response (Comments) Value History Slighlty/Non-Suspicious 0 Age < 45 0 Risk Factors No Risk Factors 0 Total 0 Risk Factors: Risk Factors: DM, Current or recent (<one month) smoker, HTN, HLP, family history of CAD, obesity. Risk Scores: Risk Factors: DM, Current or recent (<one month) smoker, HTN, HLP, family history of CAD, obesity. Course & Med Decision Making Course & Med Decision Making Patient is a 24-year-old female presenting for multiple medical complaints. On today's evaluation she is most concerned with the right-sided headache with associated photo and phonophobia and generalized weakness and dizziness; no history of migraine. Vitals on exam were within normal limits and physical exam including full neurological exam revealed no deficits. CBC, CMP, urine , urinalysis were ordered and patient was given fluid bolus, Compazine, and Benadryl to manage headache symptoms. On reevaluation patient reports slight symptomatic improvement, denied Toradol on reevaluation, and was resting comfortably with near total resolution of symptoms. I discussed this might be an intracranial abnormality and discussed utility of CT head but given that patient was feeling better and tolerating PO intake she deferred. She has good access to care with PCP and can be seen for follow-up in upcoming 3-5 days for repeat evaluation. Strict return precautions discussed with good understanding, all questions and concerns addressed prior to departure Mohan Disclaimer Mohan Disclaimer This electronic medical record was generated, in whole or in part, using a voice recognition dictation system. Departure Departure: Impression: Primary Impression: Headache Additional Impression: Nausea Disposition: 01 DC HOME SELF CARE/HOMELESS Condition: IMPROVED Referrals: PCP,UNKNOWN (PCP) Patient Instructions: General Headache Without Cause, Nausea, Adult Additional Instructions: As discussed, there were no emergent/surgical findings on your exam today. You were treated with IV fluids, benadryl and an anti-nausea medication that helped nearly totally improve your symptoms. You were offered a CT image of your head to rule out any intracranial abnormalities but given that you responded so well to ER intervention, you deferred. As such, please follow-up with your PCP regarding today's visit. There might be indication for further diagnostic workup in the outpatient setting. If any concerning signs or symptoms present prior to outpatient follow-up please don't hesitate to come back for repeat evaluation. It was a pleasure to take care of you and I wish you a speedy recovery Scripts Ondansetron Hcl (ZOFRAN) 4 Mg Tablet 1 TAB PO PRN Q6-8HRS for NAUSEA, #15 TAB Prov: VINNIE THIBODEAUX DO 10/30/20 Problem Qualifiers VINNIE THIBODEAUX DO Oct 30, 2020 12:15
[2020-10-30 12:18] LABS: BASO # 0.1 x10^3/uL (0.0-0.2); BASO % 1 % (0-3); EOS # 0.2 x10^3/uL (0.0-0.7); EOS % 3 % (0-3); HEMATOCRIT 39.3 % (36.0-47.0); HEMOGLOBIN 13.3 g/dL (12.0-15.5); LYMPH % 26 % (24-48); MEAN CORPUSCULAR HEMOGLOBIN 30 pg (25-35); MEAN CORPUSCULAR HGB CONC 34 g/dL (31-37); MEAN CORPUSCULAR VOLUME 88 fL (79-100); MONO # 0.6 x10^3/uL (0.0-1.1); MONO % 8 % (0-9); NEUT # 4.7 x10^3uL (1.8-7.7); NEUT % 63 % (31-73); PLATELET COUNT 290 x10^3/uL (140-400); RED BLOOD COUNT 4.45 x10^6/uL (3.50-5.40); RED CELL DISTRIBUTION WIDTH 14.3 % (11.5-14.5); WHITE BLOOD COUNT 7.5 x10^3/uL (4.0-11.0)
[2020-10-30 12:29] LABS: BILIRUBIN,URINE NEG (NEG); CLARITY,URINE CLEAR; COLOR,URINE STRAW; GLUCOSE,URINE NEG (NEG); UROBILINOGEN,URINE 0.2 mg/dL (0.2 mg/dL)
[2020-10-30 12:29] LABS: CALCIUM 9.1 mg/dL (8.5-10.1); CREATININE 0.8 mg/dL (0.6-1.0); GFR 89.7; POTASSIUM 3.9 mmol/L (3.5-5.1)
[2020-10-30 12:30] LABS: BACTERIA,URINE FEW /HPF (0-FEW); NITRITE,URINE NEG (NEG); RBC,URINE 0 /HPF (0-2); SQUAMOUS EPITHELIAL CELL,UR FEW /LPF; WBC,URINE RARE /HPF (0-4)
[2020-10-30 12:35] LABS: ALBUMIN 3.8 g/dL (3.4-5.0); ALBUMIN/GLOBULIN RATIO 1.1 (1.0-1.7); TOTAL BILIRUBIN 0.6 mg/dL (0.2-1.0); TOTAL PROTEIN 7.4 g/dL (6.4-8.2)
[2020-10-30 12:55] VITALS: BP 103/53
[2020-10-30] MEDS ORDERED: ONDA4TAB7 PO (13:01)
== END 2020-10-30 13:10 | disposition home or self-care (01) ==
LOC: ER 11:15
DX: R51.9 Headache, unspecified (principal); R11.2 Nausea with vomiting, unspecified; R42 Dizziness and giddiness; R53.1 Weakness
CPT/HCPCS: 36415; 80053; 81001; 81025; 85025; 96361; 96372; 96374; 99284; J0780; J1200; J7030

== ENCOUNTER 2021-01-18 00:24 | Emergency (ER) | payer OTHER ==
[~2021-01-18] VITALS: Ht 149.9 cm; Wt 70.0 kg
[~2021-01-18 00:24] MED LIST changes: +ONDA4TAB7 PO
--- NOTE | 2021-01-18 01:50 | PHYS DOC ---
Past History Past Medical History: No Pertinent History, Constipation, STD Past Surgical History: Tonsillectomy Smoking: Non-smoker Alcohol Use: Occasionally Drug Use: None General Adult HPI: HPI: ".. I got abdomen pain.."'' I am hurting really bad here on the Rt... down lower.. 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 lower. Patient denies any intake bad food. Patient denies any recent trauma. Patient denies any fever or chills. No history of immunosuppression. Up-to-date with vaccinations. No rec ent travel. Patient has not gotten Covid vaccination. Patient does have a past history of a diagnosis of . Gonorrhea that was treated. Patient has had 6 lifetime sex partners. Patient denies any current vaginal discharge. Pain is reproducible rebound to the right lower quadrant. Patient is somewhat distended. She denies history of colitis. Patient denies history of ovarian cysts. Patient denies history of renal stones. Patient's menstruation is not due for a couple weeks. Review of Systems: Review of Systems: Constitutional: Denies fever or chills Eyes: Denies change in visual acuity HENT: Denies nasal congestion or sore throat Respiratory: Denies cough or shortness of breath Cardiovascular: Denies chest pain or edema GI: Complains of right lower abdominal pain, nausea,. Denies vomiting, bloody stools or diarrhea : Denies dysuria denies vaginal discharge Musculoskeletal: Denies back pain or joint pain Integument: Denies rash Neurologic: Denies headache, focal weakness or sensory changes Endocrine: Denies polyuria or polydipsia Lymphatic: Denies swollen glands Psychiatric: Denies depression or anxiety Family History: Family History: Noncontributory Current Medications: Current Meds: See nursing for home meds Allergies: Allergies: Allergies Coded Allergies Type Severity Reaction Last Updated Verified No Known Drug Allergies 10/28/20 No Physical Exam: PE: Constitutional: Well developed, well nourished, no acute distress, non-toxic appearance. [] HENT: Normocephalic, atraumatic, bilateral external ears normal, oropharynx moist, no oral exudates, nose normal. [] Eyes: PERRLA, EOMI, conjunctiva normal, no discharge. [] Neck: Normal range of motion, no tenderness, supple, no stridor. [] Cardiovascular:Heart rate regular rhythm, no murmur [] Lungs & Thorax: Bilateral breath sounds clear to auscultation [] Abdomen: Bowel sounds normal, soft, right lower quadrant tenderness, no masses, no pulsatile masses. [] Rebound to right lower quadrant. Patient defers pelvic exam at this time. Skin: Warm, dry, no erythema, no rash. [] Back: No tenderness, mild right CVA tenderness. [] Extremities: No tenderness, no cyanosis, no clubbing, ROM intact, no edema. No psoas sign. No cording. Neurologic: Alert and oriented X 3, normal motor function, normal sensory function, no focal deficits noted. [] Psychologic: Affect anxious, judgement normal, mood normal. [] EKG: EKG: [] Radiology/Procedures: Radiology/Procedures: [address] [address] IMAGING REPORT Signed PATIENT: MYKEL MEDINA IACCOUNT: [id number] : 1995 LOCATION: ER AGE: 25 SEX: F EXAM STATUS: REG ER ORD. PHYSICIAN: LOLITA KATZ MD REASON: Rt. lower abdomen pain PROCEDURE: ACUTE ABDOMEN SERIES XR ABDOMEN COMP ACUTE INDICATION: Reason: Rt. lower abdomen pain / Spl. Instructions: / History: . COMPARISON STUDY: None. FINDINGS: Lungs: Normal lung volume. No pulmonary mass or consolidation. The tracheobronchial tree and hilar structures are normal. Pleura: No pleural effusion or pneumothorax. Heart and Mediastinum: The cardiomediastinal silhouette is normal. The great vessels of the thorax are normal. Abdomen: Nonobstructive bowel gas pattern. Moderate colonic stool burden. No free air. IMPRESSION: 1. Nonobstructive bowel gas pattern. 2. No focal airspace disease. Electronically signed by: Maria Elena Jensen MD (01/18/2021 5:47 AM) [facility] DICTATED AND SIGNED BY: MARIA ELENA JENSEN MD DATE: 01/18/21 0547 CC: LOLITA KATZ MD; PCP,UNKNOWN ~MTH0 0 [][address] [place] [address] IMAGING REPORT Signed PATIENT: MYKEL MEDINA IACCOUNT: [id number] : 1995 LOCATION: ER AGE: 25 SEX: F EXAM STATUS: REG ER ORD. PHYSICIAN: LOLITA KATZ MD REASON: pain Rt. lower, OMNI 300, 75ml & OMNI 240, 30ml PROCEDURE: CT ABD PELV W/ORAL&IV CONTRAST CT ABDOMEN+PELVIS W History: pain Rt. lower Comparison: 10/28/2020 Technique: After administration of intravenous contrast, helical CT of the abdomen and pelvis was performed from the lung bases through the ischial tuberosities. Coronal and sagittal reconstructions were obtained. 75 mL of Omnipaque 350 were used. One or more of the following dose reduction techniques were utilized: Automated exposure control (AEC), Adjustment of mA and/or kV according to patient size, Use of iterative reconstruction technique such as ASiR, CT scan done according to ALARA and image gently/image wisely Abdomen Findings: The visualized lung bases are clear. The liver, gallbladder, pancreas, spleen, and bilateral adrenal glands are normal. Symmetric renal enhancement. There is no focal renal mass. There is no hydronephrosis. The visualized loops of small bowel are normal. The visualized loops of large bowel are normal. There is no evidence of bowel obstruction. Appendix is normal. There is no free fluid. There is no mesenteric or retroperitoneal adenopathy. The abdominal aorta is normal in caliber. Pelvis Findings: Urinary bladder is normal. Retroflexed uterus. Ovaries are present. No pelvic free fluid. There is no pelvic or inguinal adenopathy. There is no acute bony abnormality. IMPRESSION: No acute findings. Electronically signed by: Maria Elena Jensen MD (01/18/2021 4:56 AM) [facility] DICTATED AND SIGNED BY: MARIA ELENA JENSEN MD DATE: 01/18/21 045 CC: LOLITA KATZ MD; PCP,UNKNOWN ~MTH0 0 Heart Score: C/O Chest Pain: N/A Risk Factors: Risk Factors: DM, Current or recent (<one month) smoker, HTN, HLP, family history of CAD, obesity. Risk Scores: Score 0 - 3: 2.5% MACE over next 6 weeks - Discharge Home Score 4 - 6: 20.3% MACE over next 6 weeks - Admit for Clinical Observation Score 7 - 10: 72.7% MACE over next 6 weeks - Early Invasive Strategies Course & Med Decision Making: Course & Med Decision Making Pertinent Labs and Imaging studies reviewed. (See chart for details) Patient sustained on a clear fluid diet only for the next 2 days. No solids. No milk products. Clear fluids only to allow bowel rest. Patient to have reexam if no improvement after passage of stool burden. Follow-up [facility]. Return if any concerns. Impression: 1. Right lower quadrant abdomen pain 2. Constipation [] Dragon Disclaimer: Dragon Disclaimer: This electronic medical record was generated, in whole or in part, using a voice recognition dictation system. Departure Departure: Referrals: PCP,UNKNOWN (PCP) Dragasim Disclaimer This chart was dictated in whole or in part using Voice Recognition software in a busy, high-work load, and often noisy Emergency Department environment. It may contain unintended and wholly unrecognized errors or omissions. LOLITA KATZ MD Jan 18, 2021 01:50
[2021-01-18 02:56] LABS: BACTERIA,URINE 0 /HPF (0-FEW); BILIRUBIN,URINE NEG (NEG); CLARITY,URINE CLEAR; COLOR,URINE YELLOW; GLUCOSE,URINE NEG (NEG); NITRITE,URINE NEG (NEG); RBC,URINE 0 /HPF (0-2); SQUAMOUS EPITHELIAL CELL,UR OCC /LPF; UROBILINOGEN,URINE 0.2 mg/dL (0.2 mg/dL); WBC,URINE OCC /HPF (0-4)
[2021-01-18 02:58] LABS: BARBITURATES NEG (NEG); BENZODIAZEPINES NEG (NEG); CANNABINOIDS NEG (NEG); COCAINE NEG (NEG); METHADONE NEG (NEG); OPIATES NEG (NEG); PHENCYCLIDINE NEG (NEG)
[2021-01-18 02:59] LABS: AMPHETAMINE/METHAMPHETAMINE NEG (NEG)
[2021-01-18] MEDS ORDERED: FAMOTIDINE 20 MG/2 ML VIAL IVP ONE (03:15)
[2021-01-18] MEDS ORDERED: IV RINGERS SOLUTION,LACTATED 1,000 ML IV SCH (03:15)
[2021-01-18] MEDS ORDERED: IOHEXOL 300 MG/ML 75 ML VIAL. IV ONE (03:15)
[2021-01-18] MEDS ORDERED: CONTRAST GIVEN. MC PRN (03:15)
[2021-01-18] MEDS ORDERED: KETOROLAC 30 MG/ML VIAL. IVP ONE (03:15)
[2021-01-18] MEDS ORDERED: IOHEXOL 240 MG/ML 50ML VIAL. PO ONE (03:15)
[2021-01-18] MEDS ORDERED: ONDANSETRON PF 4 MG/2 ML VIAL. IVP ONE (03:15)
[2021-01-18 03:34] LABS: ALBUMIN 3.7 g/dL (3.4-5.0); CALCIUM 8.9 mg/dL (8.5-10.1); CREATININE 0.9 mg/dL (0.6-1.0); DIRECT BILIRUBIN 0.1 mg/dL (0.0-0.2); GFR 77.6; POTASSIUM 3.7 mmol/L (3.5-5.1); TOTAL BILIRUBIN 0.3 mg/dL (0.2-1.0); TOTAL PROTEIN 6.9 g/dL (6.4-8.2)
[2021-01-18] MEDS ORDERED: IV NORMAL SALINE 50ML 50 ML ONE (03:36)
[2021-01-18] MEDS ORDERED: cefTRIAXone SODIUM 1 GM VIAL ONE (03:37)
[2021-01-18 04:00] LABS: BASO # 0.1 x10^3/uL (0.0-0.2); BASO % 1 % (0-3); EOS # 0.3 x10^3/uL (0.0-0.7); EOS % 3 % (0-3); HEMATOCRIT 37.9 % (36.0-47.0); LYMPH % 30 % (24-48); MEAN CORPUSCULAR HEMOGLOBIN 30 pg (25-35); MEAN CORPUSCULAR HGB CONC 34 g/dL (31-37); MEAN CORPUSCULAR VOLUME 88 fL (79-100); MONO # 0.8 x10^3/uL (0.0-1.1); MONO % 8 % (0-9); NEUT % 59 % (31-73); PLATELET COUNT 283 x10^3/uL (140-400); RED BLOOD COUNT 4.31 x10^6/uL (3.50-5.40); RED CELL DISTRIBUTION WIDTH 13.7 % (11.5-14.5); WHITE BLOOD COUNT 10.2 x10^3/uL (4.0-11.0)
--- NOTE | 2021-01-18 04:58 | RAD ---
CT ABDOMEN+PELVIS W History: pain Rt. lower Comparison: 10/28/2020 Technique: After administration of intravenous contrast, helical CT of the abdomen and pelvis was per formed from the lung bases through the ischial tuberosities. Coronal and sagittal reconstructions wer e obtained. 75 mL of Omnipaque 350 were used. One or more of the following dose reduction techniques were utilized: Automated exposure control (AEC), Adjustment of mA and/or kV according to patient size , Use of iterative reconstruction technique such as ASiR, CT scan done according to ALARA and image g ently/image wisely Abdomen Findings: The visualized lung bases are clear. The liver, gallbladder, pancreas, spleen, and bilateral adrenal glands are normal. Symmetric renal enhancement. There is no focal renal mass. There is no hydronephrosis. The visualized loops of small bowel are normal. The visualized loops of large bowel are normal. There is no evidence of bowel obstruction. Appendix is normal. There is no free fluid. There is no mesenteric or retroperitoneal adenopathy. The abdominal aorta is normal in caliber. Pelvis Findings: Urinary bladder is normal. Retroflexed uterus. Ovaries are present. No pelvic free fluid. There is no pelvic or inguinal adenopathy. There is no acute bony abnormality. IMPRESSION: No acute findings. Electronically signed by: Adam Melendez MD (01/18/2021 4:56 AM) [facility]
[2021-01-18] MEDS ORDERED: MAGNESIUM HYDROXIDE 2,400 MG/30 ML ORAL.SUSP. PO ONE (05:45)
--- NOTE | 2021-01-18 05:49 | RAD ---
XR ABDOMEN COMP ACUTE INDICATION: Reason: Rt. lower abdomen pain / Spl. Instructions: / History: . COMPARISON STUDY: None. FINDINGS: Lungs: Normal lung volume. No pulmonary mass or consolidation. The tracheobronchial tree and hilar st ructures are normal. Pleura: No pleural effusion or pneumothorax. Heart and Mediastinum: The cardiomediastinal silhouette is normal. The great vessels of the thorax ar e normal. Abdomen: Nonobstructive bowel gas pattern. Moderate colonic stool burden. No free air. IMPRESSION: 1. Nonobstructive bowel gas pattern. 2. No focal airspace disease. Electronically signed by: Adam Melendez MD (01/18/2021 5:47 AM) [facility]
[2021-01-18 06:00] VITALS: BP 94/46
== END 2021-01-18 06:00 | disposition home or self-care (01) ==
LOC: ER 00:24
DX: K59.00 Constipation, unspecified (principal)
CPT/HCPCS: 36415; 74022; 74177; 80048; 80076; 80307; 81001; 81025; 82150; 82550; 83690; 84484; 85025; 87491; 87591; 96365; 96366; 96375; 99285; J0696; J1885; J2405; J3490; J7120; Q9966; Q9967

== ENCOUNTER 2021-05-07 01:13 | Emergency (ER) | payer OTHER ==
[~2021-05-07] VITALS: Ht 149.9 cm; Wt 74.0 kg
--- NOTE | 2021-05-07 02:03 | PHYS DOC ---
Past History Past Medical History: No Pertinent History, Constipation, STD Past Surgical History: Tonsillectomy Smoking: Non-smoker Alcohol Use: None Drug Use: None Adult General Chief Complaint Chief Complaint: URINARY FREQUENCY HPI HPI Patient is 44-year-old female who presents with pain upon end of urination stream for the last 1 week. She has had mild bladder pain but denies any back pain. She denies any fever, nausea, vomiting. She has noted recent history of urinary tract infection. She is sexually active but denies any vaginal bleeding or discharge. Her last menstrual period was approximately 1 month ago. Denies any other complaints. Review of Systems Review of Systems Constitutional: Denies fever or chills Eyes: Denies change in visual acuity, redness, or eye pain HENT: Denies nasal congestion or sore throat Respiratory: Denies cough or shortness of breath Cardiovascular: No additional information not addressed in HPI GI: Denies abdominal pain, nausea, vomiting, bloody stools or diarrhea : Dysuria for the last 1 week Musculoskeletal: Denies back pain or joint pain Integument: Denies rash or skin lesions Neurologic: Denies headache, focal weakness or sensory changes Endocrine: Denies polyuria or polydipsia All other systems were reviewed and found to be within normal limits, except as documented in this note. Allergies Allergies Allergies Coded Allergies Type Severity Reaction Last Updated Verified No Known Drug Allergies 10/28/20 No Physical Exam Physical Exam Constitutional: Well developed, well nourished, no acute distress, non-toxic appearance. [ HENT: Normocephalic, atraumatic, bilateral external ears normal, oropharynx moist, no oral exudates. Neck: Normal range of motion, no tenderness Cardiovascular:Heart rate regular rhythm, no murmur Lungs & Thorax: Bilateral breath sounds clear to auscultation Abdomen: Bowel sounds normal, soft, no tenderness Skin: Warm, dry, no erythema, no rash. Back: No tenderness, no CVA tenderness. Extremities: No tenderness, no cyanosis, no clubbing, ROM intact, no edema. Neurologic: Alert and oriented X 3, no focal deficits noted. Current Patient Data Vital Signs Vital Signs Date Time Temp Pulse Resp B/P (MAP) Pulse Ox O2 Delivery O2 Flow Rate FiO2 05/07/21 01:20 98.8 78 16 115/70 (85) 100 Room Air Lab Results Laboratory Tests Test 05/07/21 01:23 05/07/21 01:55 Urine Collection Type Unknown Urine Color Yellow Urine Clarity Clear Urine pH 6.0 Urine Specific [place] 1.025 Urine Protein Neg Urine Glucose (UA) Neg mg/dL Urine Ketones (Stick) Trace mg/dL Urine Blood Neg Urine Nitrite Neg Urine Bilirubin Neg Urine Urobilinogen Dipstick 0.2 mg/dL Urine Leukocyte Esterase Neg Urine RBC 0 /HPF Urine WBC Rare /HPF Urine Squamous Epithelial Cells Few /LPF Urine Bacteria 0 /HPF Bedside Urine HCG, Qualitative hcg negative EKG EKG [] Radiology/Procedures Radiology/Procedures [] Heart Score C/O Chest Pain: No Risk Factors: Risk Factors: DM, Current or recent (<one month) smoker, HTN, HLP, family history of CAD, obesity. Risk Scores: Risk Factors: DM, Current or recent (<one month) smoker, HTN, HLP, family history of CAD, obesity. Course & Med Decision Making Course & Med Decision Making Pertinent Labs and Imaging studies reviewed. (See chart for details) Patient presented with urinary frequency with slight pain at the end of urination. She is otherwise stable without any fever nausea or vomiting. Her urine analysis is showed no significant signs of infection. Her urine test was negative. I have discussed with patient the negative laboratory findi ngs. I have instructed her to keep yourself hydrated. If she develops any increased pain or fever, to seek medical attention. Dragon Disclaimer Dragon Disclaimer This electronic medical record was generated, in whole or in part, using a voice recognition dictation system. Departure Departure: Impression: Primary Impression: Urinary frequency Disposition: 01 HOME / SELF CARE / HOMELESS Condition: STABLE Referrals: ERIN TAYLORP-C (PCP) Please see your doctor if you continue to have symptoms beyond 2 to 3 days. Patient Instructions: Urinary Frequency JHONNY SWANSON MD May 07, 2021 02:02
[2021-05-07 02:05] LABS: BACTERIA,URINE 0 /HPF (0-FEW); BILIRUBIN,URINE NEG (NEG); CLARITY,URINE CLEAR; COLOR,URINE YELLOW; GLUCOSE,URINE NEG (NEG); NITRITE,URINE NEG (NEG); RBC,URINE 0 /HPF (0-2); SQUAMOUS EPITHELIAL CELL,UR FEW /LPF; UROBILINOGEN,URINE 0.2 mg/dL (0.2 mg/dL); WBC,URINE RARE /HPF (0-4)
[2021-05-07 02:30] VITALS: BP 116/66
== END 2021-05-07 02:35 | disposition home or self-care (01) ==
LOC: ER 01:13
DX: R30.0 Dysuria (principal)
CPT/HCPCS: 81001; 81025; 99283-25

== ENCOUNTER 2021-11-19 17:03 | Emergency (ER) | payer OTHER ==
[2021-11-19] MEDS ORDERED: ACETAMINOPHEN 500 MG TABLET PO ONE ×2 (20:19→20:30)
[2021-11-19] MEDS ORDERED: KETOROLAC 30 MG/ML VIAL. IVP ONE (20:19)
[2021-11-19] MEDS ORDERED: KETOROLAC 30 MG/ML VIAL. ONE (20:31)
[2021-11-19 23:32] LABS: CLARITY,URINE CLEAR; COLOR,URINE YELLOW
[2021-11-19 23:33] LABS: BACTERIA,URINE 0 /HPF (0-FEW); GLUCOSE,URINE NEG (NEG); NITRITE,URINE NEG (NEG); RBC,URINE 0 /HPF (0-2); SQUAMOUS EPITHELIAL CELL,UR FEW /LPF; UROBILINOGEN,URINE 0.2 mg/dL (0.2 mg/dL); WBC,URINE RARE /HPF (0-4)
[2021-11-19 23:37] LABS: U PREG PATIENT NEGATIVE (NEG)
--- NOTE | 2021-11-22 08:11 | RAD ---
Abdominal and Pelvis CT, Without Contrast: History: Left flank pain radiating to lower abdomen since 11/12/2021 Comparison: None. Procedure: Axial images are obtained of the abdomen and pelvis, without IV or oral contrast. Oral Contrast: No Findings: Evaluation of solid organs is limited without contrast. The gallbladder and appendix are normal. Liver: Normal. Spleen: Normal. Pancreas: Normal. Adrenal Glands: Normal. Kidneys: Normal. There is no free air or free fluid. There is no lymphadenopathy. The urinary bladder appears normal. There is no pericolonic inflammation identified. Impression: No acute findings. End impression PQRS Compliance Statement: One or more of the following individualized dose reduction techniques were utilized for this examinat ion: 1. Automated exposure control 2. Adjustment of the mA and/or kV according to patient size 3. Use of iterative reconstruction technique Electronically signed by: Anselmo Britton III, MD (11/19/2021 10:02 PM) [facility]
== END 2021-11-19 23:34 | disposition home or self-care (01) ==
LOC: ER 17:03
DX: R10.9 Unspecified abdominal pain (principal); R50.9 Fever, unspecified
CPT/HCPCS: 74176; 81001; 81025; 96372; 99284

== ENCOUNTER 2021-11-24 14:21 | Emergency (ER) | payer OTHER ==
[~2021-11-24] VITALS: Ht 149.9 cm; Wt 75.3 kg
[2021-11-24 16:02] LABS: CLARITY,URINE CLEAR; COLOR,URINE YELLOW; GLUCOSE,URINE NEG (NEG)
[2021-11-24 16:03] LABS: UROBILINOGEN,URINE 0.2 mg/dL (0.2 mg/dL)
[2021-11-24 16:04] LABS: NITRITE,URINE NEG (NEG); RBC,URINE 0 /HPF (0-2)
[2021-11-24 16:05] LABS: BACTERIA,URINE FEW /HPF (0-FEW); SQUAMOUS EPITHELIAL CELL,UR FEW /LPF; WBC,URINE OCC /HPF (0-4)
[2021-11-24] MEDS ORDERED: ORPHENADRINE CITRATE 60 MG/2 ML VIAL. IM ONE (16:30)
[2021-11-24] MEDS ORDERED: KETOROLAC 60 MG/2 ML VIAL. IM ONE (16:30)
--- NOTE | 2021-11-24 17:07 | PHYS DOC ---
Past History Past Medical History: No Pertinent History, Constipation, STD Past Surgical History: Tonsillectomy Smoking: Non-smoker Alcohol Use: None Drug Use: None General Adult EDM: Chief Complaint: FEVER HPI: HPI: Patient is a 26-year-old female presents with fever, headache, body aches since yesterday. Highest fever at home was 102. Patient states that she took Tylenol this morning. Patient was afebrile here. Denies nausea/vomiting/diarrhea. Denies cough, chest pain shortness of breath. No dysuria or urgency. Patient is also reporting left sided lower back pain, that radiates down her left leg. Patient was seen for same symptoms last week and given Toradol which helped. De nies saddle anesthesia, denies urinary retention or loss of bowel. Denies medical history. Review of Systems: Review of Systems: ROS At least 10 ROS systems have been reviewed and are negative except as documented in the HPI. General: Negative except as outlined in HPI above. Skin: Negative except as outlined in HPI above. HEENT: Negative except as outlined in HPI above. Neck: Negative except as outlined in HPI above. Respiratory: Negative except as outlined in HPI above.. Cardiovascular: Negative except as outlined in HPI above. Abdomen: Negative except as outlined in HPI above. : Negative except as outlined in HPI above. Back/MSK: Negative except as outlined in HPI above. Neuro: Negative except as outlined in HPI above. Psych: Negative except as outlined in HPI above. Current Medications: Current Meds: Current Medications Medications (Trade) Dose Ordered Sig/Selina Start Time Stop Time Status Last Admin Dose Admin Ketorolac Tromethamine (Toradol Im) 60 mg 1X ONCE 11/24/21 16:30 11/24/21 16:31 DC 11/24/21 16:46 60 MG Orphenadrine Citrate (Norflex) 60 mg 1X ONCE 11/24/21 16:30 11/24/21 16:31 DC Allergies: Allergies: Allergies Coded Allergies Type Severity Reaction Last Updated Verified No Known Drug Allergies 11/24/21 No Physical Exam: PE: Constitutional: Well developed, well nourished, no acute distress, non-toxic appearance. [] HENT: Normocephalic, atraumatic, bilateral external ears normal, oropharynx moist, no oral exudates, nose normal. [] Eyes: PERRLA, EOMI, conjunctiva normal, no discharge. [] Neck: Normal range of motion, no tenderness, supple, no stridor. [] Cardiovascular:Heart rate regular rhythm, no murmur [] Lungs & Thorax: Bilateral breath sounds clear to auscultation [] Abdomen: Bowel sounds normal, soft, no tenderness, no masses, no pulsatile masses. [] Skin: Warm, dry, no erythema, no rash. [] Back: Left lower back tenderness, no CVA tenderness. [] Extremities: Left leg tenderness, ROM intact, no edema. [] Neurologic: Alert and oriented X 3, normal motor function, normal sensory function, no focal deficits noted. [] Psychologic: Affect normal, judgement normal, mood normal. [] Current Patient Data: Labs: Laboratory Tests Test 11/24/21 14:22 11/24/21 15:37 POC Urine HCG, Qualitative hcg negative (Negative) Urine Collection Type Unknown Urine Color Yellow Urine Clarity Clear Urine pH 5.5 Urine Specific Ringling >=1.030 Urine Protein Neg (NEG-TRACE) Urine Glucose (UA) Neg mg/dL (NEG) Urine Ketones (Stick) Neg mg/dL (NEG) Urine Blood Neg (NEG) Urine Nitrite Neg (NEG) Urine Bilirubin Neg (NEG) Urine Urobilinogen Dipstick 0.2 mg/dL (0.2 mg/dL) Urine Leukocyte Esterase Neg (NEG) Urine RBC 0 /HPF (0-2) Urine WBC Occ /HPF (0-4) Urine Squamous Epithelial Cells Few /LPF Urine Bacteria Few /HPF (0-FEW) Vital Signs: Vital Signs Date Time Temp Pulse Resp B/P (MAP) Pulse Ox O2 Delivery O2 Flow Rate FiO2 11/24/21 15:21 98.2 80 18 105/69 (81) 99 Room Air EKG: EKG: [] Radiology/Procedures: Radiology/Procedures: [] Heart Score: C/O Chest Pain: No Risk Factors: Risk Factors: DM, Current or recent (<one month) smoker, HTN, HLP, family history of CAD, obesity. Risk Scores: Score 0 - 3: 2.5% MACE over next 6 weeks - Discharge Home Score 4 - 6: 20.3% MACE over next 6 weeks - Admit for Clinical Observation Score 7 - 10: 72.7% MACE over next 6 weeks - Early Invasive Strategies Course & Med Decision Making: Course & Med Decision Making Pertinent Labs and Imaging studies reviewed. (See chart for details) [] 26-year-old female presents with left, lower back pain that radiates down her buttocks. Patient states she was seen here last week for the same problem. She is also reporting fevers at home along with headache and body aches. Patient was afebrile in the ER. I gave patient IM Toradol, IM Norflex. Patient was recently tested for COVID which was negative. Patient tested for influenza. Advised patient to continue taking ibuprofen and Tylenol for headaches and fever. Patient sent home with Flexeril due to sciatic pain. Patient's appreciative and okay with discharge plan. Dragon Disclaimer: Conveneer Disclaimer: This electronic medical record was generated, in whole or in part, using a voice recognition dictation system. Departure Departure: Impression: Primary Impression: Sciatic nerve pain Qualified Codes: M54.32 - Sciatica, left side Additional Impression: Fever Qualified Codes: R50.9 - Fever, unspecified Disposition: 01 HOME / SELF CARE / HOMELESS Condition: STABLE Referrals: ERIN TAYLOR-Conchis (PCP) Patient Instructions: Sciatica, [id number] Additional Instructions: Continue taking ibuprofen and Tylenol at home. I am also sending you home with Flexeril for muscle relaxer. Make sure that you are not driving due to make you drowsy. Drink plenty of fluids. Turn to emergency room for worsening symptoms or concerns. EMERGENCY DEPARTMENT GENERAL DISCHARGE INSTRUCTIONS Thank you for coming to [facility] (ED) today and trusting us with you care. We trust that you had a positivie experience in our Emergency Department. If you wish to speak to the department management, you may call the director at [phone]. YOUR FOLLOW UP INSTRUCTIONS ARE FOLLOWS: 1. Do you have a private Doctor? If you do not have a private doctor, please ask for a resource list of physicians or clinics that may be able to assist you with follow up care. 2. The Emergency Physician has interpreted your x-rays. The X-Ray specialist will also review them. If there is a change in the findings, you will be notified in 48 hours when at all possible. 3. A lab test or culture has been done, your results will be reviewed and you will be notified if you need a change in treatment. ADDITIONAL INSTRUCTIONS AND INFORMATION: 1. Your care today has been supervised by a physician who is specially trained in emergency care. Many problems require more than one evaluation for a complete diagnosis and treatment. We recommend that you schedule your follow up appointment as recommended to ensure complete treatment of you illness or injury. If you are unable to obtain follow up care and continue to have a problem, or if your condition worsens, we recommend that you return to the ED. 2. We are not able to safely determine your condition over the phone nor are we able to give sound medical advice over the phone. For these safety reasons, if you call for medical advice we will ask you to come to the ED for further evaluation. 3. If you have any questions regarding these discharge instructions please call the ED at [phone]. SAFETY INFORMATION: In the interest of safety, wellness, and injury prevention; we encourage you to wear your sealbelt, if you smoke; quite smoking, and we encourage family to use a protective helmet for bicycling and other sporting events that present an increased risk for head injury. IF YOUR SYMPTOMS WORSEN OR NEW SYMPTOMS DEVELOP, OR YOU HAVE CONCERNS ABOUT YOUR CONDITION; OR IF YOUR CONDITION WORSENS WHILE YOU ARE WAITING FOR YOUR FOLLOW UP APPOINTMENT; EITHER CONTACT YOUR PRIMARY CARE DOCTOR, THE PHYSICIAN WHOSE NAME AND NUMBER YOU WERE GIVEN, OR RETURN TO THE ED IMMEDIATELY. Scripts Cyclobenzaprine Hcl (CYCLOBENZAPRINE HCL) 10 Mg Tablet 1 TAB PO TID for pain for 7 Days, #21 TAB Prov: TIMOTEO CAUSEY APRN 11/24/21 TIMOTEO CAUSEY APRN November 24, 2021 17:07
[2021-11-24] MEDS ORDERED: CYCL10TA19 PO (17:10)
[2021-11-24 17:19] VITALS: BP 109/67
[2021-11-24 18:17] LABS: INFLUENZA A PATIENT NEGATIVE (NEGATIVE); INFLUENZA B PATIENT NEGATIVE (NEGATIVE)
== END 2021-11-24 17:20 | disposition home or self-care (01) ==
LOC: ER 14:21
DX: M54.42 Lumbago with sciatica, left side (principal); R50.9 Fever, unspecified; R51.9 Headache, unspecified
CPT/HCPCS: 81001; 81025; 87804; 96372; 99283; J1885; 87428

== ENCOUNTER 2021-11-29 13:56 | Emergency (ER) | payer OTHER ==
[~2021-11-29] VITALS: Ht 149.9 cm; Wt 75.3 kg
[~2021-11-29 13:56] MED LIST changes: +CYCL10TA19 PO
[2021-11-29] MEDS ORDERED: ACETAMINOPHEN 500 MG TABLET PO ONE (14:15)
[2021-11-29] MEDS ORDERED: ONDANSETRON ODT 4 MG TAB.RAPDIS PO ONE (14:15)
--- NOTE | 2021-11-29 14:17 | PHYS DOC ---
Past History Past Medical History: No Pertinent History, Constipation, STD Past Surgical History: Tonsillectomy Smoking: Non-smoker Alcohol Use: None Drug Use: None General Adult EDM: Chief Complaint: FLU SYMPTOM HPI: HPI: Patient is a 26-year-old female who presents to the emergency department for multiple complaints plaints including fever, nonproductive cough, headache, nausea, body aches, sore throat. Patient had negative influenza testing on November 24. Patient denies shortness of breath, vomiting, urinary symptoms, ear pain. Review of Systems: Review of Systems: Constitutional: See HPI HENT: See HPI Respiratory: See HPI GI: See HPI : See HPI Musculoskeletal: See HPI Neurologic: See HPI Current Medications: Current Meds: Current Medications Medications (Trade) Dose Ordered Sig/Selina Start Time Stop Time Status Last Admin Dose Admin Acetaminophen (Tylenol) 1,000 mg 1X ONCE 11/29/21 14:15 11/29/21 14:16 UNV Ondansetron HCl (Zofran Odt) 4 mg 1X ONCE 11/29/21 14:15 11/29/21 14:16 UNV Allergies: Allergies: Allergies Coded Allergies Type Severity Reaction Last Updated Verified No Known Drug Allergies 11/24/21 No Physical Exam: PE: Constitutional: Well developed, well nourished, no acute distress, non-toxic appearance. [] HENT: Normocephalic, atraumatic, bilateral external ears normal, bilateral tympanic membranes are intact without erythema, oropharynx moist, tonsils absent but erythematous oropharynx, postnasal drainage noted, no oral exudates, nose normal. [] Eyes: PERRL, EOMI, conjunctiva normal, no discharge. [] Neck: Normal range of motion, no tenderness, supple, left anterior cervical chain lymphadenopathy, no stridor. [] Cardiovascular:Heart rate regular rhythm, no murmur [] Lungs & Thorax: Bilateral breath sounds clear to auscultation [] Abdomen: Bowel sounds normal, soft, no tenderness, no masses, no pulsatile masses. [] Skin: Warm, dry, no erythema, no rash. [] Back: No tenderness, normal range of motion Extremities: No tenderness, no cyanosis, no clubbing, ROM intact, no edema. [] Neurologic: Alert and oriented X 3, normal motor function, normal sensory function, no focal deficits noted. [] Psychologic: Affect normal, judgement normal, mood normal. [] Current Patient Data: Labs: Laboratory Tests Test 11/29/21 14:40 11/29/21 14:50 Heterophil Agglutinins Pending Influenza Type A (Rapid) Negative Influenza Type B (Rapid) Negative SARS-CoV-2 Antigen (Rapid) Negative Group A Streptococcus Rapid Negative Bedside Urine HCG, Qualitative hcg negative Current Medications Medications (Trade) Dose Ordered Sig/Selina Route PRN Reason Start Time Stop Time Status Last Admin Dose Admin Acetaminophen (Tylenol) 1,000 mg 1X ONCE PO 11/29/21 14:15 11/29/21 14:17 DC 11/29/21 14:39 Ondansetron HCl (Zofran Odt) 4 mg 1X ONCE PO 11/29/21 14:15 11/29/21 14:17 DC 11/29/21 14:39 EKG: EKG: [] Radiology/Procedures: Radiology/Procedures: []OB: 1995LOCATION: ERAGE: 26 SEX: F EXAM STATUS: REG ER ORD. PHYSICIAN: JUAN PABLO REA APRN REASON: cough, fever PROCEDURE: CHEST PA & LATERAL EXAMINATION: XR CHEST 2V. HISTORY: 26 years Female Reason: cough, fever. COMPARISON: October 28, 2020. Findings: The lungs are clear. The heart size is normal. There is no effusion or pneumothorax. The mediastinum and taylor appear unremarkable. Impression: Unremarkable study. Electronically signed by: Stormy Phillip MD (11/29/2021 4:13 PM) [id number] DICTATED AND SIGNED BY: STORMY PHILLIP MD DATE: 11/29/21 161 CC: ERIN TAYLOR; EMERGENCY,DEPARTMENT; JUAN PABLO REA APRN ~ Heart Score: C/O Chest Pain: N/A Risk Factors: Risk Factors: DM, Current or recent (<one month) smoker, HTN, HLP, family history of CAD, obesity. Risk Scores: Score 0 - 3: 2.5% MACE over next 6 weeks - Discharge Home Score 4 - 6: 20.3% MACE over next 6 weeks - Admit for Clinical Observation Score 7 - 10: 72.7% MACE over next 6 weeks - Early Invasive Strategies Course & Med Decision Making: Course & Med Decision Making Pertinent Labs and Imaging studies reviewed. (See chart for details) [] Patient presents to the emergency department today for fever, headache, nause a, body aches, sore throat that started on November 12. Patient presented to this emergency department for similar complaints on November 24 and had negative influenza testing. Patient will be tested for strep, mono and COVID-19 as well as have a chest x-ray to rule out pneumonia. Patient will be treated with Zofran and p.o. challenged, Tylenol. Patient's tests were negative in the ER. Chest x-ray did not show any pneumonia. Patient is likely experiencing a viral illness. She is advised to take Tylenol and ibuprofen for her headache and fevers and she will be discharged home with nausea medication. Patient is tolerating oral intake. I discussed with patient all findings and diagnostic testing as well as the need to follow-up with PCP for further evaluation and treatment or return to the ER if any new or worsening symptoms. Strict return precautions were also discussed at length. Patient voiced understanding and agreement with the plan. Patient is hemodynamically stable at the time of disposition. Dragon Disclaimer: Saplo Disclaimer: This electronic medical record was generated, in whole or in part, using a voice recognition dictation system. Departure Departure: Impression: Primary Impression: Viral syndrome Disposition: HOME / SELF CARE / HOMELESS Condition: GOOD Referrals: ERIN TAYLOR (PCP) Patient Instructions: Nausea, Adult Additional Instructions: You were seen in the emergency department for multiple symptoms consistent. We tested you for influenza, COVID, strep and mono which were negative. The chest x-ray did not show any acute findings. You are likely experiencing a viral illness. Increase your fluids and rest. Take Tylenol and ibuprofen at home for your pain or fevers. Perform warm salt water gargles for your sore throat. You are being discharged home with nausea medication that you can take as needed. Follow-up with your primary care provider tomorrow regarding your ER visit. Return to the emergency department if you develop shortness of breath, chest pain, high fevers refractory to treatment, tractable nausea or vomiting. Scripts Ondansetron (ONDANSETRON ODT) 4 Mg Tab.rapdis 1 TAB PO PRN Q6-8HRS for nausea for 7 Days, #28 TAB 0 Refills Prov: JUAN PABLO REA APRN 11/29/21 JUAN PABLO REA APRN November 29, 2021 14:17
[2021-11-29 15:19] VITALS: BP 117/93
[2021-11-29 15:19] LABS: INFLUENZA A PATIENT NEGATIVE (NEGATIVE); INFLUENZA B PATIENT NEGATIVE (NEGATIVE)
--- NOTE | 2021-11-29 16:15 | RAD ---
EXAMINATION: XR CHEST 2V. HISTORY: 26 years Female Reason: cough, fever. COMPARISON: October 28, 2020. Findings: The lungs are clear. The heart size is normal. There is no effusion or pneumothorax. The mediastinum and taylor appear unremarkable. Impression: Unremarkable study. Electronically signed by: Manjit Phillip MD (11/29/2021 4:13 PM) [id number]
[2021-11-29 16:46] LABS: MONONUCLEOSIS PATIENT NEGATIVE (NEGATIVE)
[2021-11-29] MEDS ORDERED: ONDA4TAB12 PO (16:49)
== END 2021-11-29 16:57 | disposition home or self-care (01) ==
LOC: ER 13:56
DX: B34.9 Viral infection, unspecified (principal); Z20.822 Contact with and (suspected) exposure to COVID-19
CPT/HCPCS: 71046; 81025; 86308; 87070; 87428; 87880; 99284; Q0162

== ENCOUNTER 2021-12-15 16:09 | Emergency (ER) | payer OTHER ==
[~2021-12-15 16:09] MED LIST changes: +ONDA4TAB12 PO
[2021-12-15] MEDS ORDERED: KETOROLAC 60 MG/2 ML VIAL. IM ONE (16:45)
[2021-12-15] MEDS ORDERED: ORPHENADRINE CITRATE 60 MG/2 ML VIAL. IM ONE (16:45)
--- NOTE | 2021-12-15 16:50 | PHYS DOC ---
Past History Past Medical History: No Pertinent History, Constipation, STD (JUAN PABLO REA APRN) Past Surgical History: Tonsillectomy (JUAN PABLO REA APRN) Smoking: Non-smoker Alcohol Use: None Drug Use: None (JUAN PABLO REA APRN) General Adult EDM: Chief Complaint: LOWER BACK PAIN OR INJURY HPI: HPI: Patient is a 26-year-old female who presents to the emergency department for multiple complaints. Her first complaint is low back pain that radiates down both legs that she rates 10 out of 10. No treatment prior to arrival. She reports that her pain started after she participated in PT. Patient denies any saddle anesthesias, urinary symptoms or loss of bowel or bladder. Patient is also complaining of right-sided chest wall tenderness with palpation, deep inspiration. She describes pain as sharp and rates it 10 out of 10. She denies any shortness of breath or nausea or vomiting. She has no medical history. (JUAN PABLO REA APRN) Review of Systems: Review of Systems: Respiratory: see HPI Cardiovascular: see HPI GI: see HPI : see HPI Musculoskeletal: see HPI Neurologic: see HPI (JUAN PABLO REA APRN) Current Medications: Current Meds: Current Medications Medications (Trade) Dose Ordered Sig/Selina Start Time Stop Time Status Last Admin Dose Admin Ketorolac Tromethamine (Toradol Im) 60 mg 1X ONCE 12/15/21 16:45 12/15/21 16:46 DC Orphenadrine Citrate (Norflex) 60 mg 1X ONCE 12/15/21 16:45 12/15/21 16:46 DC (JUAN PABLO REA APRN) Allergies: Allergies: Allergies Coded Allergies Type Severity Reaction Last Updated Verified No Known Drug Allergies 11/24/21 No (JUAN PABLO REA APRN) Physical Exam: PE: Constitutional: Well developed, well nourished, no acute distress, non-toxic appearance. [] HENT: Normocephalic, atraumatic, bilateral external ears normal, oropharynx moist, no oral exudates, nose normal. [] Eyes: PERRL EOMI, conjunctiva normal, no discharge. [] Neck: Normal range of motion, no tenderness, supple, no stridor. [] Cardiovascular:Heart rate regular rhythm, no murmur, right chest wall tenderness with palpation [] Lungs & Thorax: Bilateral breath sounds clear to auscultation [] Abdomen: Bowel sounds normal, soft, no tenderness, no masses, no pulsatile masses. [] Skin: Warm, dry, no erythema, no rash. [] Back: No bony spinal tenderness, normal range of motion, right-sided paraspinal lumbar tenderness with palpation, no deformities noted Extremities: No tenderness, no cyanosis, no clubbing, ROM intact, no edema. [] Neurologic: Alert and oriented X 3, normal motor function, normal sensory function, no focal deficits noted. [] Psychologic: Affect normal, judgement normal, mood normal. [] (JUAN PABLO REA APRN) Current Patient Data: Labs: Laboratory Tests Test 12/15/21 16:50 12/15/21 17:06 12/15/21 17:52 White Blood Count 23.3 x10^3/uL Red Blood Count 4.47 x10^6/uL Hemoglobin 12.2 g/dL Hematocrit 37.3 % Mean Corpuscular Volume 83 fL Mean Corpuscular Hemoglobin 27 pg Mean Corpuscular Hemoglobin Concent 33 g/dL Red Cell Distribution Width 14.7 % Platelet Count 149 x10^3/uL Neutrophils (%) (Auto) 33 % Lymphocytes (%) (Auto) 5 % Monocytes (%) (Auto) 61 % Eosinophils (%) (Auto) 0 % Basophils (%) (Auto) 0 % Neutrophils # (Auto) 7.7 x10^3uL Lymphocytes # (Auto) 1.2 x10^3/uL Monocytes # (Auto) 14.3 x10^3/uL Eosinophils # (Auto) 0.1 x10^3/uL Basophils # (Auto) 0.0 x10^3/uL Segmented Neutrophils % 20 % Band Neutrophils % 14 % Lymphocytes % 28 % Atypical Lymphocytes % (Manual) 31 % Monocytes % 7 % Platelet Estimate Adequate Sodium Level 138 mmol/L Potassium Level 3.9 mmol/L Chloride Level 102 mmol/L Carbon Dioxide Level 28 mmol/L Anion Gap 8 Blood Urea Nitrogen 12 mg/dL Creatinine 0.8 mg/dL Estimated GFR (Cockcroft-Gault) 88.1 BUN/Creatinine Ratio 15 Glucose Level 71 mg/dL Calcium Level 9.3 mg/dL Total Bilirubin 0.3 mg/dL Aspartate Amino Transf (AST/SGOT) 32 U/L Alanine Aminotransferase (ALT/SGPT) 31 U/L Alkaline Phosphatase 62 U/L Troponin I High Sensitivity < 4 ng/L Total Protein 7.6 g/dL Albumin 3.3 g/dL Albumin/Globulin Ratio 0.8 Bedside Urine HCG, Qualitative hcg negative Urine Collection Type Unknown Urine Color Yellow Urine Clarity Clear Urine pH 6.0 Urine Specific [place] >=1.030 Urine Protein Neg Urine Glucose (UA) Neg mg/dL Urine Ketones (Stick) Neg mg/dL Urine Blood Neg Urine Nitrite Neg Urine Bilirubin Neg Urine Urobilinogen Dipstick 0.2 mg/dL Urine Leukocyte Esterase Neg Urine RBC 0 /HPF Urine WBC Occ /HPF Urine Squamous Epithelial Cells Mod /LPF Urine Bacteria 0 /HPF Current Medications Medications (Trade) Dose Ordered Sig/Selina Route PRN Reason Start Time Stop Time Status Last Admin Dose Admin Ketorolac Tromethamine (Toradol Im) 60 mg 1X ONCE IM 12/15/21 16:45 12/15/21 16:46 DC 12/15/21 17:01 Orphenadrine Citrate (Norflex) 60 mg 1X ONCE IM 12/15/21 16:45 12/15/21 16:46 DC 12/15/21 17:01 (JUAN PABLO REA PRODUCT MANAGENT INTERN) EKG: EKG: EKG performed by ER staff at 1649 shows sinus rhythm with rate of 91, no STEMI read by Dr. Rangel at 1654. [] (JUAN PABLO REA PRODUCT MANAGENT INTERN) Radiology/Procedures: Radiology/Procedures: [] EXAMINATION: CT LUMBAR SPINE WO CLINICAL HISTORY: Low back pain. TECHNIQUE: Serial axial images obtained through the L-spine without intravenous contrast with sagittal and coronal planar reconstructions. CT Dose Reduction Employed: One or more of the following individualized dose reduction techniques were utilized for this examination: 1. Automated exposure control 2. Adjustment of the mA and/or kV according to patient size 3. Use of iterative reconstruction technique. COMPARISON: None FINDINGS: Alignment: Normal anatomic alignment. Osseous Structures: No evidence of acute fracture or spondylolisthesis. Degenerative Changes: No significant degenerative changes. Paraspinal Soft Tissues: Paraspinal soft tissues unremarkable. IMPRESSION: No evidence of acute osseous abnormality. Electronically signed by: August Barone DO (12/15/2021 4:50 PM) [facility] DICTATED AND SIGNED BY: AUGUST BARONE DO DATE: 05/1646 CC: [facility] TAYLOR; EMERGENCY,DEPARTMENT; JUAN PABLO REA APRN ~ PROCEDURE: CHEST PA & LATERAL Exam: Chest 2 views INDICATION: Chest pain, pain TECHNIQUE: Frontal view of the chest Comparisons: 11/29/2021 FINDINGS: The cardiomediastinal silhouette and pulmonary vessels are within normal limits. The lung and pleural spaces are clear. IMPRESSION: No acute cardiopulmonary process. Electronically signed by: Marquez Carlisle MD (12/15/2021 4:49 PM) [facility] DICTATED AND SIGNED BY: MARQUEZ CARLISLE MD DATE: 12/15/211646 CC: [facility]IN TAYLOR; EMERGENCY,DEPARTMENT; JUAN PABLO REA APRN ~ (JUAN PABLO REA APRN) Heart Score: C/O Chest Pain: Yes HEART Score for Chest Pain: HEART Score for Chest Pain Response (Comments) Value History Slighlty/Non-Suspicious 0 ECG Normal 0 Age < 45 0 Risk Factors No Risk Factors 0 Troponin < Normal Limit 0 Total 0 Risk Factors: Risk Factors: DM, Current or recent (<one month) smoker, HTN, HLP, family history of CAD, obesity. Risk Scores: Score 0 - 3: 2.5% MACE over next 6 weeks - Discharge Home Score 4 - 6: 20.3% MACE over next 6 weeks - Admit for Clinical Observation Score 7 - 10: 72.7% MACE over next 6 weeks - Early Invasive Strategies (JUAN PABLO REA APRN) Course & Med Decision Making: Course & Med Decision Making Pertinent Labs and Imaging studies reviewed. (See chart for details) [] Patient presents to the emergency department for bilateral low back pain that radiates down into her legs [place] scan performed and patient was treated with anti-inflammatory medications and a muscle relaxer she is likely experiencing sciatica. She does have a positive straight leg raise. Patient is also reporting right-sided chest pain. Work-up in the ER consisted of blood work including troponin, EKG and chest x-ray. Patient is noted to have mild leukocytosis a high monocyte count is likely she is experiencing a viral infection, negative troponin, EKG shows sinus rhythm, chest x-ray and lumbar CT scan showed no acute findings. Patient's heart score is 0. Patient's chest pain is likely musculoskeletal in nature. Patient advised to take anti-inflammatory medications and she will be discharged home with a muscle relaxer. Her vital signs are stable. I discussed with patient all findings and diagnostic testing as well as the need to follow-up with PCP for further evaluation and treatment or return to the ER if any new or worsening symptoms. Strict return precautions were also discussed at length. Patient voiced understanding and agreement with the plan. Patient is hemodynamically stable at the time of disposition. (JUAN PABLO REA APRN) Dragon Disclaimer: Dragon Disclaimer: This electronic medical record was generated, in whole or in part, using a voice recognition dictation system. (JUAN PABLO REA APRN) Departure Departure: Impression: Primary Impression: Back pain Qualified Codes: M54.42 - Lumbago with sciatica, left side; M54.41 - Lumbago with sciatica, right side Additional Impression: Chest wall pain Disposition: HOME / SELF CARE / HOMELESS Condition: GOOD Referrals: ERIN TAYLOR-[facility] (PCP) Patient Instructions: Back Pain, Adult Additional Instructions: You are seen in the emergency department today for back pain and chest pain. You are noted to have mild elevation in your white blood cell count is likely that you may be experiencing a viral illness. Your back and chest pain is likely musculoskeletal in nature. You are being treated with a muscle relaxer that you can take as needed. This may cause sedation so do not take need to be alert, driving a vehicle or with alcohol. Please assist in combination with anti-inflammatory medications. Follow-up with your primary care provider tomorrow regarding your ER visit. Return to the emergency department if you develop worsening of her chest pain, shortness of breath, high fevers refractory treatment, tractable nausea or vomiting, loss of bowel or bladder, numbness or tingling in your groin or down your legs, inability to bear weight or walk. Scripts Cyclobenzaprine Hcl (CYCLOBENZAPRINE HCL) 5 Mg Tablet 1 TAB PO TID for MUSCLE SPASM for 7 Days, #21 TAB 0 Refills Prov: JUAN PABLO REA APRN 12/15/21 Attending Signature Attending Signature I have participated in the care of this patient and I have reviewed and agree with all pertinent clinical information above including history, exam, and recommendations. (LOLITA KATZ MD) Dragon Disclaimer This chart was dictated in whole or in part using Voice Recognition software in a busy, high-work load, and often noisy Emergency Department environment. It may contain unintended and wholly unrecognized errors or omissions. (LOLITA KATZ MD) JUAN PABLO REA APRN December 15, 2021 16:49 LOLITA KATZ MD December 15, 2021 23:58
--- NOTE | 2021-12-15 16:52 | RAD ---
EXAMINATION: CT LUMBAR SPINE WO CLINICAL HISTORY: Low back pain. TECHNIQUE: Serial axial images obtained through the L-spine without intravenous contrast with sagittal and coron al planar reconstructions. CT Dose Reduction Employed: One or more of the following individualized dose reduction techniques wer e utilized for this examination: 1. Automated exposure control 2. Adjustment of the mA and/or kV ac cording to patient size 3. Use of iterative reconstruction technique. COMPARISON: None FINDINGS: Alignment: Normal anatomic alignment. Osseous Structures: No evidence of acute fracture or spondylolisthesis. Degenerative Changes: No significant degenerative changes. Paraspinal Soft Tissues: Paraspinal soft tissues unremarkable. IMPRESSION: No evidence of acute osseous abnormality. Electronically signed by: August Qureshi DO (12/15/2021 4:50 PM) [facility]
[2021-12-15 17:18] LABS: BASO % 0 % (0-3); EOS # 0.1 x10^3/uL (0.0-0.7); EOS % 0 % (0-3); HEMATOCRIT 37.3 % (36.0-47.0); HEMOGLOBIN 12.2 g/dL (12.0-15.5); LYMPH # 1.2 x10^3/uL (1.0-4.8); LYMPH % 5 % (24-48); MEAN CORPUSCULAR HEMOGLOBIN 27 pg (25-35); MEAN CORPUSCULAR HGB CONC 33 g/dL (31-37); MEAN CORPUSCULAR VOLUME 83 fL (79-100); MONO # 14.3 x10^3/uL (0.0-1.1); MONO % 61 % (0-9); NEUT # 7.7 x10^3uL (1.8-7.7); NEUT % 33 % (31-73); PLATELET COUNT 149 x10^3/uL (140-400); RED BLOOD COUNT 4.47 x10^6/uL (3.50-5.40); RED CELL DISTRIBUTION WIDTH 14.7 % (11.5-14.5); WHITE BLOOD COUNT 23.3 x10^3/uL (4.0-11.0)
[2021-12-15 17:30] LABS: CALCIUM 9.3 mg/dL (8.5-10.1); CREATININE 0.8 mg/dL (0.6-1.0); GFR 88.1; POTASSIUM 3.9 mmol/L (3.5-5.1)
[2021-12-15 17:36] LABS: ALBUMIN 3.3 g/dL (3.4-5.0); ALBUMIN/GLOBULIN RATIO 0.8 (1.0-1.7); TOTAL BILIRUBIN 0.3 mg/dL (0.2-1.0); TOTAL PROTEIN 7.6 g/dL (6.4-8.2)
[2021-12-15 17:37] LABS: % ATYL 31 % (0-0); % BANDS 14 % (0-9); % LYMPHS 28 % (24-48); % MONOS 7 % (0-10); % SEGS 20 % (35-66); PLT ESTIMATE ADEQUATE (ADEQUATE)
[2021-12-15 18:30] LABS: BACTERIA,URINE 0 /HPF (0-FEW); CLARITY,URINE CLEAR; COLOR,URINE YELLOW; GLUCOSE,URINE NEG (NEG); NITRITE,URINE NEG (NEG); RBC,URINE 0 /HPF (0-2); SQUAMOUS EPITHELIAL CELL,UR MOD /LPF; UROBILINOGEN,URINE 0.2 mg/dL (0.2 mg/dL); WBC,URINE OCC /HPF (0-4)
[2021-12-15] MEDS ORDERED: CYCL5TAB PO (19:00)
== END 2021-12-15 19:30 | disposition home or self-care (01) ==
LOC: ER 16:09
DX: M54.42 Lumbago with sciatica, left side (principal); M54.41 Lumbago with sciatica, right side; R07.89 Other chest pain
CPT/HCPCS: 36415; 71046; 72131; 80053; 81001; 81025; 84484; 85007; 85025; 93005; 96372; 99285; J1885; J2360